=== PATIENT | male | born 1975 | race Caucasian/White ===

== ENCOUNTER 2016-09-30 19:24 | Emergency (ER) | payer BC ==
[2016-09-30] MEDS ORDERED: NS 0.9% 1000 ML* 1,000 ML IV ONE (20:19)
[2016-09-30] MEDS ORDERED: Acetaminophen TAB* 325 MG PO ONE (20:19)
[2016-09-30 20:34] LABS: Hematocrit 43 % (42-52); Mean Corpuscular HGB Conc 35 g/dl (31-36); Mean Corpuscular Hemoglobin 29 pg (27-31); Mean Corpuscular Volume 82 fL (80-94); Mean Platelet Volume 9 um3 (7.4-10.4); Red Blood Count 5.21 10^6/ul (4.0-5.4); Red Cell Distribution Width 14 % (10.5-15); White Blood Count 5.3 10^3/ul (3.5-10.8)
[2016-09-30 20:49] LABS: Add Diff/Slide Review? Slide Review Added; Comments Flag Yes
[2016-09-30 20:49] LABS: Urine Bacteria Absent (Absent); Urine Bilirubin Negative (Negative); Urine Glucose 3+(>=500 mg/dL) (Negative); Urine Nitrite Negative (Negative)
[2016-09-30 20:51] LABS: Albumin 4.7 g/dL (3.2-5.2); BUN/Creatinine Ratio 11.6 (8-20); Calcium 9.1 mg/dL (8.6-10.3); EGFR African American 72.7 (>60); EGFR Non-African American 56.5 (>60); Globulin 3.1 g/dL (2-4); Potassium 3.8 mmol/L (3.5-5.0); Total Protein 7.8 g/dL (6.4-8.9)
--- NOTE | 2016-09-30 20:56 | RAD ---
INDICATION: Headache. COMPARISON: Comparison is made with a prior CT of the brain from February 07, 2014. TECHNIQUE: Contiguous axial sections of the brain were obtained from the skull base to the vertex without contrast. FINDINGS: The ventricles, cisterns and sulci are within normal limits. No significant focal abnormality or mass effect is seen. There is no evidence for hemorrhage. No significant focal osseous abnormality is seen. The visualized portion of the paranasal sinuses and mastoid air cells appear clear. IMPRESSION: NO EVIDENCE FOR ACUTE INTRACRANIAL ABNORMALITY.
--- NOTE | 2016-09-30 20:57 | RAD ---
INDICATION: Fever. COMPARISON: Comparison is made with a prior chest x-ray study from July 31, 2007. TECHNIQUE: A portable view of the chest was obtained. FINDINGS: Cardiac and mediastinal contours appear to be within normal limits. The lungs are clear. No pleural effusion is seen. IMPRESSION: NO EVIDENCE FOR ACUTE DISEASE.
[2016-09-30] MEDS ORDERED: Ondansetron INJ* 2 MG/ML VIAL IV ONE (21:08)
[2016-09-30 23:47] LABS: C Reactive Protein 58.84 mg/L (< 5.00)
[2016-10-01 00:54] LABS: Erythrocyte Sed Rate 21 mm/Hr (0-14)
[2016-10-01 01:14] VITALS: BP 113/64
--- NOTE | 2016-10-01 05:35 | ED ---
Salvador Valencia Aidan, scribed for Sajan Joel on 09/30/16 at 2045 . Complex/Multi-Sys Presentation - HPI Summary HPI Summary: 40 y/o male presents to the ED with a complaint of an acute, [id number] episode of fever today and acute, constant, severe (8/10) lower back pain and body aches that began just over 5 days ago. Other associated symptoms include difficulty urinating, some mild abdominal pain on deep inhalation, intermittent episodes of inner ear pain, mild SOB, and a severe BLEVINS. His fever was not alleviated by Tylenol and his symptoms appear to be getting more severe. 5 days ago, he was found to have hematuria and an ear infection and was given Cipro. 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 Onset/Duration: Sudden Onset, Lasting Days, Still Present Timing: Constant - back pain, Intermittent, Lasting: - abd pain on inhalation, inner ear pain, 1 episode of fever, difficulty urinating, migraines Severity Currently: Severe - back pain and BLEVINS Severity Initially: Severe - back pain and BLEVINS Location: Pain At: - lower back and BLEVINS Character: Sharp - lower back pain, Typical Headache Aggravating Factor(s): unknown Alleviating Factor(s): unknown Associated Signs And Symptoms: Positive: Headache, SOB - mild, Abdominal Pain - on deep inhalation, mild, Back Pain, Fever, Other - difficulty urinating, episodes of inner ear pain - Allergies/Home Medications Allergies/Adverse Reactions: Allergies Allergy/AdvReac Type Severity Reaction Status Date / Time Celecoxib [From Celebrex] Allergy Anaphylatic Verified 10/30/15 07:37 Shock Metoclopramide [From Reglan] Allergy Agitation Verified 10/30/15 08:47 Sulfa Antibiotics Allergy Swelling Verified 09/30/16 20:32 Of Face,Lips,& Throat Home Medications: Home Medications Ciprofloxacin TAB* [Cipro Tab*] 500 mg PO BID 09/30/16 [History Confirmed ] Empagliflozin [Jardiance] 25 mg PO DAILY 09/30/16 [History Confirmed 09/30/16] SitaGLIPtin (NF) [Januvia (NF)] 100 mg PO DAILY 09/30/16 [History Confirmed ] PMH/Surg Hx/FS Hx/Imm Hx Endocrine/Hematology History: Reports: Hx Diabetes - type 2 Denies: Hx Anticoagulant Therapy, Hx Thyroid Disease Cardiovascular History: Denies: Hx Hypertension, Hx Pacemaker/ICD Respiratory History: Denies: Hx Asthma, Hx Chronic Obstructive Pulmonary Disease (COPD) GI History: Denies: Hx Ulcer History: Denies: Hx Renal Disease Sensory History: Denies: Hx Hearing Aid Neurological History: Denies: Hx Dementia, Hx Seizures Psychiatric History: Denies: Hx Panic Disorder, Hx Substance Abuse - Surgical History Surgery Procedure, Year, and Place: GALLBLADDER,. R KNEE ACL REPLACEMENT 20 YRS AGO - Immunization History Date of Tetanus Vaccine: unk Date of Influenza Vaccine: fall 2015 Infectious Disease History: Yes Infectious Disease History: Denies: Hx Clostridium Difficile, Hx Hepatitis, Hx Human Immunodeficiency Virus (HIV), Traveled Outside the [place] in Last 30 Days - Family History Known Family History: Positive: Hypertension - Social History Occupation: Employed Full-time Lives: With Family Alcohol Use: None Substance Use Type: Reports: None Smoking Status (MU): Never Smoked Tobacco Have You Smoked in the Last Year: No Review of Systems Positive: Fever Eyes: Negative Positive: Ear Ache Cardiovascular: Negative Positive: Shortness Of Breath Positive: Abdominal Pain Positive: other - difficulty urinating Musculoskeletal: Negative Skin: Negative Positive: Headache Psychological: Normal All Other Systems Reviewed And Are Negative: Yes Physical Exam Triage Information Reviewed: Yes Vital Signs On Initial Exam: Initial Vitals Temp Pulse Resp BP Pulse Ox 102.7 F 131 16 120/93 99 09/30/16 19:27 09/30/16 19:27 09/30/16 19:27 09/30/16 19:27 09/30/16 19:27 Vital Signs Reviewed: Yes Appearance: Positive: Well-Appearing, No Pain Distress Skin: Positive: Warm, Skin Color Reflects Adequate Perfusion, Dry Head/Face: Positive: Normal Head/Face Inspection Eyes: Positive: EOMI, NOAH ENT: Positive: Normal ENT inspection Neck: Positive: Supple, Nontender Respiratory/Lung Sounds: Positive: Clear to Auscultation, Breath Sounds Present Cardiovascular: Positive: RRR, Pulses are Symmetrical in both Upper and Lower Extremities Abdomen Description: Positive: Nontender, Soft Bowel Sounds: Positive: Present Musculoskeletal: Positive: Normal, Strength/ROM Intact Neurological: Positive: Sensory/Motor Intact, Alert, Oriented to Person Place, Time Psychiatric: Positive: Affect/Mood Appropriate AVPU Assessment: Alert - [place] Coma Scale Coma Scale Total: 15 Diagnostics - Vital Signs Vital Signs Temp Pulse Resp BP Pulse Ox 09/30/16 19:27 102.7 F 131 16 120/93 99 - Laboratory Result Diagrams: 09/30/16 20:25 09/30/16 20:25 Lab Statement: Any lab studies that have been ordered have been reviewed, and results considered in the medical decision making process. - Radiology CHEST XR Xray Interpretation: No Acute Changes - IMPRESSION: NO EVIDENCE FOR ACUTE DISEASE Radiology Interpretation Completed By: Radiologist - CT BRAIN CT CT Interpretation: No Acute Changes - IMPRESSION: NO EVIDENCE FOR ACUTE INTRACRANIAL ABNORMALITIES. CT Interpretation Completed By: Radiologist Complex Multi-Symp Course/Dx Course Of Treatment: The patient refused a spinal tap to rule out meningitis. - Diagnoses Provider Diagnoses: Fever, Ear pain, UTI (urinary tract infection) Discharge - Discharge Plan Condition: Stable Disposition: HOME Discharge Disposition Comment: If you develop headache, neck stiffness, fever, and confusion, return to ED Patient Education Materials: Urinary Tract Infection in Men (ED), Fever in Adults (ED), Earache (ED) The documentation as recorded by the Salvador dao Aidan accurately reflects the service I personally performed and the decisions made by Wisam davidson Emmanuel.
== END 2016-10-01 01:22 | disposition home or self-care (01) ==
LOC: ED 19:24
DX: N39.0 Urinary tract infection, site not specified (principal); H92.09 Otalgia, unspecified ear; E11.9 Type 2 diabetes mellitus without complications; Z88.2 Allergy status to sulfonamides
CPT/HCPCS: 36415; 70450; 71010; 80053; 80074; 81003; 81015; 83605; 85025; 85610; 85652; 85730; 86140; 87502; 96360; 96374; 99283; A9270-GY